=== PATIENT | female | born 1975 | race Caucasian/White ===

== ENCOUNTER 2017-11-03 18:35 | Inpatient (IN) | END 2017-11-04 19:05 | disposition home or self-care (01) | DRG 761 ==

== ENCOUNTER 2018-03-15 06:17 | Inpatient (IN) | payer BC ==
[2018-03-11 17:51] VITALS: Ht 157.5 cm; Wt 78.6 kg
[~2018-03-15] VITALS: Ht 157.5 cm; Wt 78.6 kg
[~2018-03-15 06:17] MED LIST: FER325 PO; LACTATED RINGER'S 1,000 ML IV* SCH
[2018-03-16] MEDS ORDERED: FER325 PO (15:04)
[2018-04-16] MEDS ORDERED: DOCU-216 PO (09:45)
[2018-04-16] MEDS ORDERED: OXYC-438 PO (09:45)
== END 2018-03-15 07:00 | disposition home or self-care (01) | DRG 951 ==
LOC: REC 06:17
PROVIDERS: ADMIT Obstetrics & Gynecology; ATTEND Obstetrics & Gynecology
DX: Z40.09 Encounter for prophylactic removal of other organ (principal); Z53.9 Procedure and treatment not carried out, unspecified reason

== ENCOUNTER 2018-03-15 12:43 | Observation (INO) | payer BC ==
[2018-03-15] VITALS (10 sets, daily range): BP systolic 96–109; BP diastolic 54–66; PULSE 60–77; RESP 16–18; Ht 157.5 cm; Wt 71.0 kg
[~2018-03-15] VITALS: Ht 157.5 cm; Wt 71.0 kg
[~2018-03-15 12:43] MED LIST changes: -LACTATED RINGER'S 1,000 ML IV* SCH
--- NOTE | 2018-03-15 13:39 | ERD ---
ER Documentation Chief Complaint Chief Complaint bib self, cc: low hemoglobin 7.7, scheduled for surgery, referred for blood HPI The patient is a 43-year-old female, presenting to the ER from her doctor's office for blood transfusion. He was scheduled for hysterectomy today due to persistent vaginal bleeding for the last 2 years, however the high energy forming equipment operator Dr Adames consulted the surgery because her hemoglobin on March 05, 2018 was 7.7 when she reviewed the labs. She was sent to her doctor's office and she was sent to get back to the ER. Denies fever, chills, neck pain, chest pain or dyspnea, abdominal pain, vomiting, complains of intermittent vaginal bleeding she does not smoke nor drink Past medical history: Fibroid, menorrhagia Past surgical history: 4 ROS All systems reviewed and are negative except as per history of present illness. Medications Home Meds Discontinued Reported Medications Ferrous Sulfate* (Ferrous Sulfate*) 325 Mg Tabec, 325 MG PO TID, TAB 11/03/17 Allergies Allergies: Coded Allergies: No Known Allergy (Verified , 03/15/18) PMhx/Soc History of Surgery: Yes (C/ S X 4) Anesthesia Reaction: No Hx Neurological Disorder: No Hx Respiratory Disorders: No Hx Cardiac Disorders: No Hx Psychiatric Problems: No Hx Miscellaneous Medical Probl: No Hx Alcohol Use: No Hx Substance Use: No Hx Tobacco Use: No Physical Exam Vitals Vital Signs Date Temp Pulse Resp B/P (MAP) Pulse Ox O2 O2 Flow FiO2 Time Delivery Rate 03/15/18 98.6 85 19 104/65 100 12:53 (78) Physical Exam Const: No acute distress.Pale Head: Atraumatic. Eyes: Normal Conjunctiva. ENT: Normal External Ears, Nose and Mouth. Neck: Full range of motion. No meningismus. Resp: Clear to auscultation bilaterally. Cardio: Regular rate and rhythm. Abd: Soft, non distended, normal bowel sounds, non tender. Skin: No petechiae or rashes. Back: No midline or flank tenderness. Ext: No cyanosis, or edema. Neur: Awake and alert. No focal deficit Psych: Normal Mood and Affect. Result Diagram: 03/15/18 1334 03/15/18 1334 Results 24 hrs Laboratory Tests Test 03/15/18 13:34 White Blood Count 7.7 10^3/ul Red Blood Count 3.48 10^6/ul Hemoglobin 6.1 g/dl Hematocrit 23.0 % Mean Corpuscular Volume 66.1 fl Mean Corpuscular Hemoglobin 17.5 pg Mean Corpuscular Hemoglobin Concent 26.5 g/dl Red Cell Distribution Width 23.3 % Platelet Count 436 10^3/UL Mean Platelet Volume 9.8 fl Immature Granulocytes % 0.500 % Neutrophils % 49.6 % Segmented Neutrophils % (Manual) 49 % Lymphocytes % 34.5 % Lymphocytes % (Manual) 41 % Monocytes % 11.5 % Monocytes % (Manual) 5 % Eosinophils % 2.7 % Eosinophils % (Manual) 1 % Basophils % 1.2 % Basophils % (Manual) 4 % Nucleated Red Blood Cells % 0.5 /100WBC Immature Granulocytes # 0.040 10^3/ul Neutrophils # 3.8 10^3/ul Lymphocytes (Manual) 3.1 10^3/ul Lymphocytes # 2.7 10^3/ul Monocytes # 0.9 10^3/ul Monocytes # (Manual) 0.3 10^3/ul Eosinophils # 0.2 10^3/ul Basophils # 0.1 10^3/ul Basophils # (Manual) 0.3 10^3/ul Nucleated Red Blood Cells # 0.0 10^3/ul Platelet Estimate NORMAL Giant Platelets 2 % Polychromasia 2+ Hypochromasia 3+ Poikilocytosis 2+ Anisocytosis 3+ Microcytosis 3+ Tear Drop Cells 1+ Ovalocytes 1+ Schistocytes 1+ Prothrombin Time 13.4 Sec Prothrombin Time Ratio 1.0 INR International Normalized Ratio 1.01 Activated Partial Thromboplast Time 21.6 Sec Sodium Level 144 mmol/L Potassium Level 4.2 mmol/L Chloride Level 104 mmol/L Carbon Dioxide Level 27 mmol/L Anion Gap 13 Blood Urea Nitrogen 12 mg/dl Creatinine 0.66 mg/dl Est Glomerular Filtrat Rate mL/min > 60 mL/min Glucose Level 103 mg/dl Calcium Level 9.1 mg/dl Iron Level 24 ug/dl Total Iron Binding Capacity 485 ug/dl Percent Iron Saturation 5 % SAT Ferritin 4.3 ng/ml Total Bilirubin 0.2 mg/dl Direct Bilirubin 0.00 mg/dl Indirect Bilirubin 0.2 mg/dl Aspartate Amino Transf (AST/SGOT) 20 IU/L Alanine Aminotransferase (ALT/SGPT) 13 IU/L Alkaline Phosphatase 67 IU/L Total Protein 9.3 g/dl Albumin 4.6 g/dl Globulin 4.70 g/dl Albumin/Globulin Ratio 0.97 Current Medications Medications Dose Sig/Brandt Start Time Status Last (Trade) Ordered Route PRN Stop Time Admin Dose Reason Admin Aspirin 324 mg ONCE ONCE 03/15/18 DC 03/15/18 (Aspirin) PO 15:00 03/15/18 15:13 15:01 Procedures/MDM EKG: Read by emergency physician Rate/Rhythm: Normal Sinus Rhythm 82 beats/min QRS, ST, T-waves: No ST elevation, no T inversion, SA Impression: Abnormal EKG MEDICAL MAKING DECISION: The patient is a 43-year-old female, presenting with symptomatic anemia due to excessive menorrhagia from fibroids. I have ordered to transfuse HER-2 units of packed red blood cell The differential diagnoses considered include but are not limited to gastritis, peptic ulcer disease, esophageal varices, Katheryn-Mota tear, carcinoma, polyp, hemorrhoid, fissure, diverticulosis, angiodysplasia. Consultation: I also discussed the patient with her high energy forming equipment operator Dr. Adames Departure Diagnosis: Primary Impression: Symptomatic anemia Condition: Stable Comments I discussed the findings with the patient. I discussed the patient with the hospitalist Dr Montoya at 3:30 pm . who was made aware of the lab, the treatment, the patient condition. The patient is admitted to [facility] Disclaimer: Inadvertent spelling and grammatical errors are likely due to EHR/dictation software use and do not reflect on the overall quality of patient care. Also, please note that the electronic time recorded on this note does not necessarily reflect the actual time of the patient encounter. BRETT RICH MD Mar 15, 2018 13:39
[2018-03-15] MEDS ORDERED: ASPIRIN 81 MG TAB PO ONE (15:00)
--- NOTE | 2018-03-15 16:08 | HP ---
Date/Time of Note Date/Time of Note DATE: 03/15/18 TIME: 16:06 Assessment/Plan VTE Prophylaxis SCD applied (from Nsg): Yes Pharmacological prophylaxis: heparin Lines/Catheters IV Catheter Type (from Nrsg): Saline Lock Assessment/Plan Hospital Course 43 yo female with acute on chronic blood loss anemia from fibroids - Transfuse 2 units PRBCs - Ferrlicit to address iron deficit as well - mold maker apprentice consult, hysterectomy this admission would be ideal Result Diagram: 03/15/18 1334 03/15/18 1334 Results 24hrs Laboratory Tests Test 03/15/18 13:34 White Blood Count 7.7 Red Blood Count 3.48 L Hemoglobin 6.1 #*L Hematocrit 23.0 #L Mean Corpuscular Volume 66.1 L Mean Corpuscular Hemoglobin 17.5 L Mean Corpuscular Hemoglobin Concent 26.5 L Red Cell Distribution Width 23.3 H Platelet Count 436 H Mean Platelet Volume 9.8 Immature Granulocytes % 0.500 H Neutrophils % 49.6 Lymphocytes % 34.5 Monocytes % 11.5 H Eosinophils % 2.7 Basophils % 1.2 Nucleated Red Blood Cells % 0.5 H Immature Granulocytes # 0.040 H Neutrophils # 3.8 Lymphocytes # 2.7 Monocytes # 0.9 Eosinophils # 0.2 Basophils # 0.1 Nucleated Red Blood Cells # 0.0 Prothrombin Time 13.4 Prothrombin Time Ratio 1.0 INR International Normalized Ratio 1.01 Activated Partial Thromboplast Time 21.6 L Sodium Level 144 Potassium Level 4.2 Chloride Level 104 Carbon Dioxide Level 27 Anion Gap 13 Blood Urea Nitrogen 12 Creatinine 0.66 Est Glomerular Filtrat Rate mL/min > 60 Glucose Level 103 Calcium Level 9.1 Iron Level 24 L Total Iron Binding Capacity 485 H Percent Iron Saturation 5 L Total Bilirubin 0.2 Direct Bilirubin 0.00 Indirect Bilirubin 0.2 Aspartate Amino Transf (AST/SGOT) 20 Alanine Aminotransferase (ALT/SGPT) 13 Alkaline Phosphatase 67 Total Protein 9.3 H Albumin 4.6 Globulin 4.70 H Albumin/Globulin Ratio 0.97 HPI/ROS Admit Date/Time Admit Date/Time Hx of Present Illness 43 yo female with chronic blood loss anemia from fibroids sent for anemia Long history of AUB 2/2 fibroid. Was due for hysterectomy today. Given anemia to 7 was referred to hospital. Here Hgb 6. Symptosm include headache and HOYT. Ordered for two units PRBCs. Heavy bleeding every two weeks she says PMH/Family/Social Past Medical History anemia Medications Current Medications Ferric Sodium Gluconate Complex 125 mg/Sodium Chloride 100 ml @ 100 mls/hr DAILY@1300 IVPB ; Start 03/16/18 at 13:00; Stop 03/18/18 at 13:59; Status UNV Coded Allergies: No Known Allergy (Verified , 03/15/18) Past Surgical History Past Surgical Hx: no surgical history Family History Significant Family History: no pertinent family hx Social History Alcohol Use: none Smoking Status: Never smoker Drug Use: none Exam/Review of Systems Vital Signs Vitals Vital Signs Date Temp Pulse Resp B/P (MAP) Pulse Ox O2 O2 Flow FiO2 Time Delivery Rate 03/15/18 78 103/57 99 Room Air 15:50 (72) 03/15/18 98.6 19 12:53 Exam Constitutional: alert, oriented, well developed Psych: no complaints, nl mood/affect Head: normocephalic, atraumatic Eyes: nl conjunctiva, EOMI, nl lids, nl sclera, PERRL ENMT: nl external ears & nose, nl lips & teeth, nl nasal mucosa & septum Neck: supple, non-tender Respiratory: clear to auscultation, normal air movement Cardiovascular: regular rate and rhythm, nl pulses Gastrointestinal: soft, nl liver, spleen, non-tender Musculoskeletal: nl extremities to inspection Extremities: normal pulses Neurological: STORE PERSON II-XII intact, nl mental status, nl speech, nl strength Skin: nl turgor; No rash or lesions Lymph: nl lymph nodes KARO DANIEL MD Mar 15, 2018 16:08
[2018-03-15] MEDS ORDERED: NACL 0.9% 3 ML SYG IV SCH (16:30)
--- NOTE | 2018-03-15 19:02 | CONS ---
Date/Time of Note Date/Time of Note DATE: 03/15/18 TIME: 18:53 Assessment/Plan Assessment/Plan Result Diagram: 03/15/18 1334 03/15/18 1334 Results 24hrs Laboratory Tests Test 03/15/18 13:34 White Blood Count 7.7 Red Blood Count 3.48 L Hemoglobin 6.1 #*L Hematocrit 23.0 #L Mean Corpuscular Volume 66.1 L Mean Corpuscular Hemoglobin 17.5 L Mean Corpuscular Hemoglobin Concent 26.5 L Red Cell Distribution Width 23.3 H Platelet Count 436 H Mean Platelet Volume 9.8 Immature Granulocytes % 0.500 H Neutrophils % 49.6 Segmented Neutrophils % (Manual) 49 Lymphocytes % 34.5 Lymphocytes % (Manual) 41 Monocytes % 11.5 H Monocytes % (Manual) 5 Eosinophils % 2.7 Eosinophils % (Manual) 1 Basophils % 1.2 Basophils % (Manual) 4 H Nucleated Red Blood Cells % 0.5 H Immature Granulocytes # 0.040 H Neutrophils # 3.8 Lymphocytes (Manual) 3.1 H Lymphocytes # 2.7 Monocytes # 0.9 Monocytes # (Manual) 0.3 Eosinophils # 0.2 Basophils # 0.1 Basophils # (Manual) 0.3 H Nucleated Red Blood Cells # 0.0 Platelet Estimate NORMAL Giant Platelets 2 H Polychromasia 2+ Hypochromasia 3+ Poikilocytosis 2+ Anisocytosis 3+ Microcytosis 3+ Tear Drop Cells 1+ Ovalocytes 1+ Schistocytes 1+ Prothrombin Time 13.4 Prothrombin Time Ratio 1.0 INR International Normalized Ratio 1.01 Activated Partial Thromboplast Time 21.6 L Sodium Level 144 Potassium Level 4.2 Chloride Level 104 Carbon Dioxide Level 27 Anion Gap 13 Blood Urea Nitrogen 12 Creatinine 0.66 Est Glomerular Filtrat Rate mL/min > 60 Glucose Level 103 Calcium Level 9.1 Iron Level 24 L Total Iron Binding Capacity 485 H Percent Iron Saturation 5 L Ferritin 4.3 L Total Bilirubin 0.2 Direct Bilirubin 0.00 Indirect Bilirubin 0.2 Aspartate Amino Transf (AST/SGOT) 20 Alanine Aminotransferase (ALT/SGPT) 13 Alkaline Phosphatase 67 Total Protein 9.3 H Albumin 4.6 Globulin 4.70 H Albumin/Globulin Ratio 0.97 Consultation Date/Type/Reason Admit Date/Time 03/15/1810/24/1853 Date of Consultation: Mar 15, 2018 Type of Consult AUDIO VIDEO TECHNICIAN Reason for Consultation severe anemia Hx of Present Illness 42 y.o who was sheduled BARRETT and poss BSO this am which had to be postponed due to anemia. She is referred to my service for surgical procure by one of AUDIO VIDEO TECHNICIAN , found to have large submucosal fibroid which has been causing menometrorrhagia,led her to have severe anemia. will bring the blood count at least 10/30 , then will consider surgical procedure since she had multiple surgical procedure in the past which developed edwar vascularization and scar formation which could cause more bleeding intraoperatively. as in HPI Constitutional: no complaints, improved Eyes: no complaints ENT: no complaints Respiratory: no complaints Cardiovascular: no complaints Gastrointestinal: no complaints Genitourinary: no complaints, bleeding Musculoskeletal: no complaints Skin: no complaints Neurologic: no complaints Endocrine: no complaints Lymphatic: no complaints Psychological: no complaints, nl mood/affect Immunologic: no complaints Past Medical History Medications Current Medications Ferric Sodium Gluconate Complex 125 mg/Sodium Chloride 100 ml @ 100 mls/hr DAILY@1300 IVPB ; Start 03/16/18 at 13:00; Stop 03/18/18 at 13:59 IV Flush (NS 3 ml) 3 ml PER PROTOCOL IV ; Start 03/15/18 at 16:30 Allergies: Coded Allergies: No Known Allergy (Verified , 03/15/18) Past Surgical History Past Surgical Hx: no surgical history Social History Alcohol Use: none Smoking Status: Never smoker Drug Use: none Exam/Review of Systems Vital Signs Vitals Vital Signs Date Temp Pulse Resp B/P (MAP) Pulse Ox O2 O2 Flow FiO2 Time Delivery Rate 03/15/18 97.9 69 14 105/54 99 Room Air 17:23 (71) Medications Medications Current Medications Ferric Sodium Gluconate Complex 125 mg/Sodium Chloride 100 ml @ 100 mls/hr DAILY@1300 IVPB ; Start 03/16/18 at 13:00; Stop 03/18/18 at 13:59 IV Flush (NS 3 ml) 3 ml PER PROTOCOL IV ; Start 03/15/18 at 16:30 LATIA CHRISTOPHER MD Mar 15, 2018 19:02
[2018-03-16] MEDS ORDERED: INFLUENZA VIRUS VACCINE 0.5 ML (DISPENSING) IM* ONE (00:30)
[2018-03-16 00:42] VITALS: BP 122/62; PULSE 62; RESP 17
[2018-03-16 08:23] VITALS: BP 92/51; PULSE 71; RESP 18
[2018-03-16] MEDS ORDERED: SOD FERRIC GLUC COMPLX 125 MG in SOD CHLORIDE 0.9% 100 ML IVPB SCH (13:00)
[2018-03-16 14:38] VITALS: BP_SYST 146; BP_SYST 99; BP_DIAS 58; BP_DIAS 82; PULSE 70; RESP 18
[2018-03-16] MEDS ORDERED: FER325 PO (15:04)
--- NOTE | 2018-03-16 15:04 | PDOCDIS ---
Discharge Instructions DIAGNOSIS Discharge Diagnosis Anemia CONDITION [id number] Patient Condition: [id number] Stable HOME CARE INSTRUCTIONS: [id number] Diet Instructions: [id number] Regular [id number] Special Diet: [id number] REGULAR ACTIVITY: [id number] Activity Restrictions: [id number] No Restrictions [id number] Bathing Restrictions: [id number] Shower FOLLOW UP/APPOINTMENTS Follow-up Plan Take iron supplement everyday Follow up with your extension educator to schedule hysterectomy KARO DANIEL MD Mar 16, 2018 15:04
--- NOTE | 2018-03-16 15:12 | DS ---
Date/Time of Note Date/Time of Note DATE: 03/16/18 TIME: 15:04 Discharge Summary Admission/Discharge Info Admit Date/Time Mar 15, 2018 at 15:38 Discharge Date/Time Discharge Diagnosis Anemia Patient Condition: Stable Hx of Present Illness 43 yo female with chronic blood loss anemia from fibroids sent for anemia Long history of AUB 2/2 fibroid. Was due for hysterectomy today. Given anemia to 7 was referred to hospital. Here Hgb 6. Symptosm include headache and HOYT. Ordered for two units PRBCs. Heavy bleeding every two weeks she says Hospital Course 43 yo female with acute on chronic blood loss anemia from fibroids She was transfuse 2 units PRBCs amd given a dose of Ferrlicit to address iron deficit as well - college recruiter was consulted. Dr Adames recommended outpatient follow up to schedule hysterectomy Home Meds Active Scripts Ferrous Sulfate* (Ferrous Sulfate*) 325 Mg Tabec, 325 MG PO BID for 90 Days, #180 TAB 3 Refills Prov:KARO DANIEL MD 03/16/18 Discontinued Reported Medications Ferrous Sulfate* (Ferrous Sulfate*) 325 Mg Tabec, 325 MG PO TID, TAB 11/03/17 Follow-up Plan Take iron supplement everyday Follow up with your commercial appraiser to schedule hysterectomy Primary Care Provider Not On Staff Doctor Pending Labs Laboratory Tests Test 03/16/18 04:44 03/16/18 06:40 White Blood Count 16.4 10^3/ul (4.8-10.8) Red Blood Count 4.25 10^6/ul (4.20-5.40) Hemoglobin 8.6 g/dl (12.0-16.0) Hematocrit 29.5 % (37.0-47.0) Mean Corpuscular Volume 69.4 fl (82.0-101.0) Mean Corpuscular Hemoglobin 20.2 pg (29.0-33.0) Mean Corpuscular 29.2 g/dl (32.0-37.0) Hemoglobin Concent Red Cell Distribution Width 25.0 % (11.5-14.5) Platelet Count 368 10^3/UL (140-415) Mean Platelet Volume 9.7 fl (7.4-10.4) Immature Granulocytes % 0.600 % (0.001-0.429) Neutrophils % 84.0 % (39.0-77.0) Lymphocytes % 5.7 % (15.0-51.0) Monocytes % 8.6 % (0.0-11.0) Eosinophils % 0.6 % (0.0-7.0) Basophils % 0.5 % (0.0-2.0) Nucleated Red Blood Cells % 0.3 /100WBC (0.0-0.0) Immature Granulocytes # 0.100 10^3/ul (0.0-0.031) Neutrophils # 13.8 10^3/ul (1.6-7.5) Lymphocytes # 0.9 10^3/ul (0.8-2.9) Monocytes # 1.4 10^3/ul (0.3-0.9) Eosinophils # 0.1 10^3/ul (0.0-0.5) Basophils # 0.1 10^3/ul (0.0-0.1) Nucleated Red Blood Cells # 0.1 10^3/ul (0.0-0.0) Hemoglobin A1c 6.2 % (0-5.9) Lab Scanned Report BLOOD TRANSFUSION KARO DANIEL MD Mar 16, 2018 15:12
[2018-03-17] MEDS ORDERED: INFLUENZA VIRUS VACCINE 0.5 ML (DISPENSING) IM* ONE (10:00)
[2018-04-16] MEDS ORDERED: OXYC-438 PO (09:45)
[2018-04-16] MEDS ORDERED: DOCU-216 PO (09:45)
== END 2018-03-16 17:30 | disposition home or self-care (01) ==
LOC: E/R 12:43 → MS1 15:38
PROVIDERS: ADMIT Internal Medicine; ATTEND Internal Medicine
DX: D64.9 Anemia, unspecified (principal); R94.31 Abnormal electrocardiogram [ECG] [EKG]; N92.0 Excessive and frequent menstruation with regular cycle; D25.9 Leiomyoma of uterus, unspecified; Z79.82 Long term (current) use of aspirin
CPT/HCPCS: 36415; 36430; 80053; 82728; 83036; 83540; 85025; 85610; 85730; 86850; 86900; 86901; 86920; 93005; J2916; P9016; Z7500; Z7502; Z7610; 90686; G0378

== ENCOUNTER 2018-03-21 15:15 | Emergency (ER) | payer BC ==
[~2018-03-21] VITALS: Wt 82.2 kg
--- NOTE | 2018-03-21 17:05 | ERD ---
ER Documentation Chief Complaint Chief Complaint gen weakness HPI The patient is a 43-year-old female, presenting to the ER from her doctor's office because of generalized weakness. She was admitted 6 days ago and received 2 units of packed red blood cell and iron infusion due to symptomatic iron deficient anemia. She c/o HOYT. She denies fever, chills, neck pain, chest pain or dyspnea, abdominal pain, vomiting, complains of intermittent vaginal bleeding she does not smoke nor drink Past medical history: Fibroid, menorrhagia Past surgical history: 4 ROS All systems reviewed and are negative except as per history of present illness. Medications Home Meds Active Scripts Ferrous Sulfate* (Ferrous Sulfate*) 325 Mg Tabec, 325 MG PO BID for 90 Days, #180 TAB 3 Refills Prov:KARO DANIEL MD 03/16/18 Discontinued Reported Medications Ferrous Sulfate* (Ferrous Sulfate*) 325 Mg Tabec, 325 MG PO TID, TAB 11/03/17 Allergies Allergies: Coded Allergies: No Known Allergy (Verified , 03/15/18) PMhx/Soc History of Surgery: Yes (C/SECTION x4. JONI REYNA 2004) Anesthesia Reaction: No Hx Neurological Disorder: No Hx Respiratory Disorders: No Hx Cardiac Disorders: No Hx Psychiatric Problems: No Hx Miscellaneous Medical Probl: Yes (ANEMIA) Hx Alcohol Use: No Hx Substance Use: No Hx Tobacco Use: No Physical Exam Vitals Vital Signs Date Temp Pulse Resp B/P (MAP) Pulse Ox O2 O2 Flow FiO2 Time Delivery Rate 03/21/18 Nasal 17:48 Cannula 03/21/18 97.7 91 18 116/76 99 15:18 (89) Physical Exam Const: No acute distress. Head: Atraumatic. Eyes: Normal Conjunctiva. ENT: Normal External Ears, Nose and Mouth. Neck: Full range of motion. No meningismus. Resp: Clear to auscultation bilaterally. Cardio: Regular rate and rhythm. Abd: Soft, non distended, normal bowel sounds, non tender. Skin: No petechiae or rashes. Back: No midline or flank tenderness. Ext: No cyanosis, or edema. Neur: Awake and alert. No focal deficit Psych: Normal Mood and Affect. Result Diagram: 03/21/18 1721 03/21/18 1318 Results 24 hrs Laboratory Tests Test 1/14/19 17:18 03/21/18 17:23 Prothrombin Time 13.7 Sec Prothrombin Time Ratio 1.1 INR International Normalized Ratio 1.04 Activated Partial Thromboplast Time 25.2 Sec Urine Color RED Urine Clarity CLEAR Urine pH 6.0 Urine Specific [place] 1.014 Urine Ketones NEGATIVE mg/dL Urine Nitrite NEGATIVE mg/dL Urine Bilirubin NEGATIVE mg/dL Urine Urobilinogen NEGATIVE mg/dL Urine Leukocyte Esterase NEGATIVE Javed/ul Urine Microscopic RBC 2 /HPF Urine Microscopic WBC 5 /HPF Urine Squamous Epithelial Cells MODERATE /HPF Urine Bacteria FEW /HPF Urine Hemoglobin 2+ mg/dL Urine Glucose NEGATIVE mg/dL Urine Total Protein 2+ mg/dl Sodium Level 140 mmol/L Potassium Level 4.1 mmol/L Chloride Level 102 mmol/L Carbon Dioxide Level 27 mmol/L Anion Gap 11 Blood Urea Nitrogen 14 mg/dl Creatinine 0.69 mg/dl Est Glomerular Filtrat Rate mL/min > 60 mL/min Glucose Level 115 mg/dl Calcium Level 9.3 mg/dl Total Bilirubin 2.4 mg/dl Direct Bilirubin 0.00 mg/dl Indirect Bilirubin 2.4 mg/dl Aspartate Amino Transf (AST/SGOT) 65 IU/L Alanine Aminotransferase (ALT/SGPT) 18 IU/L Alkaline Phosphatase 61 IU/L Total Protein 9.3 g/dl Albumin 4.6 g/dl White Blood Count 13.5 10^3/ul Red Blood Count 4.22 10^6/ul Hemoglobin 8.4 g/dl Hematocrit 30.0 % Mean Corpuscular Volume 71.1 fl Mean Corpuscular Hemoglobin 19.9 pg Mean Corpuscular Hemoglobin Concent 28.0 g/dl Red Cell Distribution Width 27.8 % Platelet Count 222 10^3/UL Mean Platelet Volume 9.8 fl Immature Granulocytes % 4.000 % Neutrophils % % Segmented Neutrophils % (Manual) 56 % Band Neutrophils % (Manual) 4 % Lymphocytes % % Lymphocytes % (Manual) 16 % Monocytes % % Monocytes % (Manual) 14 % Eosinophils % % Eosinophils % (Manual) 4 % Basophils % % Basophils % (Manual) 2 % Myelocytes % (Manual) 4 % Nucleated Red Blood Cells % 1 % Immature Granulocytes # 0.540 10^3/ul Neutrophils # 10^3/ul Neutrophils # (Manual) 7.6 10^3/ul Band Neutrophils # 0.5 10^3/ul Lymphocytes (Manual) 2.1 10^3/ul Lymphocytes # 10^3/ul Monocytes # 10^3/ul Monocytes # (Manual) 1.8 10^3/ul Eosinophils # 10^3/ul Basophils # 10^3/ul Basophils # (Manual) 0.2 10^3/ul Myelocytes # 0.5 10^3/ul Nucleated Red Blood Cells # 10^3/ul Platelet Estimate NORMAL Giant Platelets 1 % Polychromasia 1+ Hypochromasia 1+ Anisocytosis 1+ Microcytosis 1+ Procedures/MDM MEDICAL MAKING DECISION: The patient is a 43-year-old female, presenting to the ER because of chronic anemia. She was noted to have abnormal LFT of unclear etiology, possibly due to iron infusion. I do not suspect acute abdomen because multiple abdominal exams were benign. She is stable for outpatient follow-up The differential diagnoses considered include but are not limited to menorrhagia , UTI, cholelithiasis, choledocholithiasis, adverse reaction to iron infusion Departure Diagnosis: Primary Impression: Anemia Additional Impression: Abnormal LFTs Condition: Good Comments I discussed the findings with the patient. I advised the patient to follow-up with the primary physician in about 1-2 days for re-evaluation and referral to corset maker, sooner if needed and return if any concern. Disclaimer: Inadvertent spelling and grammatical errors are likely due to EHR/dictation software use and do not reflect on the overall quality of patient care. Also, please note that the electronic time recorded on this note does not necessarily reflect the actual time of the patient encounter. BRETT RICH MD Mar 21, 2018 17:05
[2018-03-21 20:23] VITALS: BP 104/72; PULSE 64; RESP 18
[2018-04-16] MEDS ORDERED: OXYC-438 PO (09:45)
[2018-04-16] MEDS ORDERED: DOCU-216 PO (09:45)
== END 2018-03-21 20:26 | disposition home or self-care (01) ==
LOC: E/R 15:15
DX: D64.9 Anemia, unspecified (principal); R94.5 Abnormal results of liver function studies
CPT/HCPCS: 80048; 80076; 81001; 85025; 85610; 85730; 86850; 86900; 86901; Z7502; 99283